=== PATIENT | female | born 1985 | race Two or more races ===

== ENCOUNTER 2019-05-11 07:19 | Emergency (ER) | payer OTHER ==
[~2019-05-11] VITALS: Ht 170.2 cm; Wt 58.0 kg
[2019-05-11 07:26] VITALS: BP 98/68
--- NOTE | 2019-05-11 07:51 | NUR ---
PATIENT TO XRAY AT THIS TIME.
== END 2019-05-11 08:27 | disposition home or self-care (01) ==
LOC: ED 08:21
DX: R07.89 Other chest pain (principal); M79.89 Other specified soft tissue disorders
CPT/HCPCS: 71046; 93005; 99283